=== PATIENT | male | born 1980 | race Caucasian/White ===

== ENCOUNTER 2025-01-04 10:35 | Emergency (ER) | payer OTHER, BC, SELFPAY ==
--- NOTE | ~2025-01-04 | XR_ITS ---
EXAMINATION: XR wrist RT min 3V, XR hand RT min 3V DATE: 01/04/2025 11:19 INDICATION: Right hand and wrist pain post fall TECHNIQUE: 1. Posteroanterior, ulnar deviation, oblique, and lateral views of the right wrist were obtained. 2. Dorsal palmar, oblique and lateral views of the right hand were obtained. COMPARISON: None. FINDINGS: Alignment of the hand and wrist is normal. No fracture identified. Joint spaces are normal. No foc al soft tissue swelling. IMPRESSION: 1. . Negative right hand and wrist radiographs. Reviewed, dictated and finalized at location A. IMPRESSION: 1. . Negative right hand and wrist radiographs.
--- OUTSIDE RECORDS SUMMARY | 2025-01-04 10:38 | XMS_ITS | Clinical Summary ---
Author Organization [facility] Address [address] [place] [address] Care Team Providers Care Package Center Supervisor Name Role Phone Gideon Akers MD Primary Care Provider Medications semaglutide (Ozempic) 2 mg/dose (8 mg/3 mL) Pen Injector Inject 2 mg by subcutaneous injection every 7 days. 4 Active lisinopriL (PRINIVIL) 20 mg tablet Take 10 mg by mouth daily. 2 Active empagliflozin-m etFORMIN (Synjardy) 12.5-1,000 mg tablet Take 1 Tablet by mouth 2 times daily. 2 Active atorvastatin (LIPITOR) 20 mg tablet Take 20 mg by mouth. 2 Active rOPINIRole (REQUIP) 0.5 mg tablet Take 0.5 mg by mouth. 3 Active Active Problems No known active problems Encounters Date Type Department Care Team Description 12/23/2024 External Device Data [facility] ABSTRACTION Provider, Abstract 11/26/2024 External Device Data [facility] ABSTRACTION Provider, Abstract 10/14/2024 External Device Data [facility]STRACTION Provider, Abstract from Last 3 Months Social History Tobacco Use Types Packs/Day Years Used Date Smoking Tobacco: Former Cigarettes Feeling Safe Answer Date Recorded Are you in a relationship wi th someone who hurts you emotionally and/or physically? 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 Gender Identity Not on file Sexual Orientation Not on file Last Filed Vital Signs Vital Sign Reading Time Taken Comments Blood Pressure 134/76 03/18/2024 9:00 AM CDT Pulse 62 03/18/2024 9:20 AM CDT Temperature 36.8 C (98.3 F) 03/18/2024 8:28 AM CDT Respiratory Rate 18 03/18/2024 8:28 AM CDT Oxygen Saturation 96% 03/18/2024 9:20 AM CDT Inhaled Oxygen Concentration - - Weight 140.6 kg (310 lb) 03/18/2024 8:28 AM CDT Height 195.6 cm (6' 5 ) 03/18/2024 8:28 AM CDT Body Mass Index 36.76 03/18/2024 8:28 AM CDT Plan of Treatment Health Maintenance Due Date Last Done Comments DIABETES ANNUAL FOOT EXAM 1999 DIABETES ANNUAL RETINAL EXAM 1999 DIABETES MICROALBUMIN ANNUAL SCREEN 1999 LDL CHOLESTEROL ANNUAL 1999 DTAP/TDAP/TD VACCINES (1 - Tdap) 01/23/2000 HEPATITIS B VACCINES (1 of 3 - 19+ 3-dose series) 01/23/2000 INFLUENZA VACCINE (#1) 2024 2, 05/27/2021, 05/26/2019 DIABETES HBA1C Q 6 MONTHS 08/04/2024 02/02/2024 HPV VACCINES Aged Out No longer eligi ble based on patient's age to complete this topic Insurance [employer] [id number] [employer] Care Teams Package Center Supervisor Relationship Specialty Start Date End Date Gideon Akers MD [address] [place] [address] PCP - General Family Practice 03/18/24
--- OUTSIDE RECORDS SUMMARY | 2025-01-04 10:38 | XMS_ITS | Clinical Summary ---
Author Organization [facility] Address [address] [place] [address] Care Team Providers Care Architect Name Role Phone Gideon Akers MD Primary Care Provider Allergies No known active allergies Medications ibuprofen 800 MG tablet Take 800 mg by mouth 3 (three) times daily. 8 Active promethazine 25 MG tabletIndications:N ausea and vomiting, intractability of vomiting not specified, unspecified vomiting type Take 1 tablet (25 mg total) by mouth every 6 (six) hours as needed for Nausea. 30 tablet 1 Active Blood Glucose Monitoring Suppl (ONE TOUCH ULTRA 2) w/Device KitIndications:Type 2 diabetes mellitus without complication, without long-term current use of insulin ([facility]) Use to check Fasting Blood Sugar Daily for DM E11.9 1 kit 1 Active Lancets MiscIndications:Typ e 2 diabetes mellitus without complication, without long-term current use of insulin ([facility]) Use to check Fasting Blood Sugar Daily for DM E11.9 100 each 3 1 Active OMEPRAZOLE 40 MG capsuleIndications: Heartburn TAKE 1 CAPSULE BY MOUTH EVERY DAY 30 capsule 11 1 Active ONETOUCH VERIO test stripIndications:Ty pe 2 diabetes mellitus without complication, without long-term current use of insulin ([facility]) USE TO CHECK FASTING BLOOD SUGAR DAILY FOR DIABETES 100 strip 3 1 Active varenicline (CHANTIX STARTING MONTH ) 0.5 MG X 11 & 1 MG X 42 tabletIndications:O ther tobacco product nicotine dependence, uncomplicated Take one 0.5 mg tablet by mouth once a day for 3 days, then increase to one 0.5 mg tablet twice a day for 4 days, then increase to one 1 mg tablet twice a day. 53 tablet 2 Active rOPINIRole (REQUIP) 0.5 MG tabletIndications:R estless leg syndrome Take 1 tablet (0.5 mg total) by mouth nightly at bedtime. 30 tablet 11 3 Active HYDROcodone-acetami nophen (NORCO) 5-325 MG tablet Take 43,467 tablets by mouth every 6 (six) hours as needed. 4 Active lisinopril (PRINIVIL) 20 MG tabletIndications:E ssential hypertension Take 1 tablet (20 mg total) by mouth daily. 90 tablet 3 4 Active atorvastatin (LIPITOR) 20 MG tabletIndications:P ure hypercholesterolemi a,Lipoprotein deficiency Take 1 tablet (20 mg total) by mouth nightly at bedtime. at bedtime 90 tablet 3 4 Active semaglutide (OZEMPIC) 2 mg/dose injection (PEN)Indications:Di abetes Mellitus Inject 2 mg into the skin once a week. Indications: Diabetes 9 mL 3 4 Active Empagliflozin-metFO RMIN HCl (SYNJARDY) 12.5-1000 MG TabIndications:Type 2 diabetes mellitus without complication, without long-term current use of insulin ([facility]) Take 1 tablet by mouth 2 (two) times daily. 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 Pure hypercholesterolemia 11/19/2020 Bilateral carpal tunnel syndrome 04/28/2019 Abrasion of left forearm 12/18/2017 Contusion of left forearm 12/18/2017 Left wrist sprain, initial encounter 12/18/2017 Nonintractable headache 12/18/2017 Scalp abrasion, initial encounter 12/18/2017 Sleep disturbances 06/01/2017 Class 2 severe obesity due t o excess calories with serious comorbidity and body mass index (BMI) of 36.0 to 36.9 in adult 01/05/2017 Nicotine dependence 01/05/2017 Restless leg syndrome 01/05/2017 Resolved Problems Problem Noted Date Diagnosed Date Resolved Date Impaired fasting glucose 10/29/2020 Immunizations Immunization Administration Dates Next Due Fluzone 6 Months+ Quad (0.5 mL Prefilled Syringe) 06/08/2022,05/27/2021,05/26/2019 Influenza Adult (Generic) 07/05/2017 Family History Medical History Relation Comments Hypertension Father Diabetes Mother Hypertension Mother None Sister Relation Status Comments Brother Alive Father Alive Mother Alive Sister Alive Social History Tobacco Use Types Packs/Day Years Used Date Smoking Tobacco: Every Day Cigarettes 2 20 Electronic Cigarettes Passive Smoke Exposure: Current Smokeless Tobacco: Current Tobacco Cessation:Ready to Q uit: No; Counseling Given: Yes Comments:physician will discuss smoking cessation- pt vapes Alcohol Use Standard Drinks/Week Comments Yes 0 (1 standard drink = 0.6 oz pur e alcohol) rarely PHQ-2 Answer Date Recorded Patient Health Questionnaire-2 Score 0 02/07/2024 Sex and Gender Information Value Date Recorded Sex Assigned at Not on file Legal Sex Male 8:20 PM CDT Gender Identity Not on file Sexual Orientation Not on file Last Filed Vital Signs Vital Sign Reading Time Taken Comments Blood Pressure 104/70 02/07/2024 7:24 AM CDT Pulse 66 02/07/2024 7:24 AM CDT Temperature 36.5 C (97.7 F) 02/07/2024 7:24 AM CDT Respiratory Rate 16 02/07/2024 7:24 AM CDT Oxygen Saturation 98% 02/07/2024 7:24 AM CDT Inhaled Oxygen Concentration - - Weight 139.3 kg (307 lb) 02/07/2024 7:24 AM CDT Height 195.6 cm (6' 5 ) 02/07/2024 7:24 AM CDT Body Mass Index 36.4 02/07/2024 7:24 AM CDT Plan of Treatment Health Maintenance Due Date Last Done Comments Diabetes: Retinopathy Eye Exam 1999 Hepatitis C 1999 DTaP, Tdap and Td Vaccines (1 - Tdap) 01/23/2000 Hepatitis B Vaccines (1 of 3 - 19+ 3-dose series) 01/23/2000 Pneumococcal Vaccine: Pediatrics (0 to 5 Years) and At-Risk Patients (6 to 49 Years) (1 of 2 - PCV) 01/23/2000 COVID-19 Vaccine (1 - season) 2024 Hemoglobin A1C 08/04/2024 02/02/2024, 04/0 09/2022, 06/08/2022, Additional history exists PHQ-2 (Physician [place]) 09/10/2024 02/07/2024 Kidney Health Evaluation 02/01/2025 02/02/2024 Lipid Panel 02/01/2025 02/02/2024, 040 09/2022, 12/10/2021, Additional history exists Annual Physical 02/06/2025 02/07/2024, 12/25/2022 HPV Vaccines Aged Out No longer eligi ble based on patient's age to complete this topic Meningococcal B Vaccine Aged Out No l onger eligible based on patient's age to complete this topic Meningococcal Vaccine Aged Out No leland luis alberto eligible based on patient's age to complete this topic RSV Immunizations Under 20 Months Aged Out No longer eligible based on patient's age to complete this topic Procedures Procedure Name Priority Date/Time Associated Diagnosis Comments LIPID PANEL Routine 02/02/2024 9:35 AM CDT HEMOGLOBIN, GLYCOSYLATED Routine 02/02/2024 9:35 AM CDT from Last 3 Months or Most Recently Relevant to Health Maintenance Results * HEMOGLOBIN, GLYCOSYLATED (02/02/2024 9:35 AM CDT) HGB A1C 5.0 <5.7 % of total [facility]gb [facility] Comment: For the purpose of screening for the presence of diabetes: <5.7% Consistent with the absence of diabetes 5.7-6.4% Consistent with increased risk for diabetes (prediabetes) > or =6.5% Consistent with diabetes This assay result is consistent with a decreased risk of diabetes. Currently, no consensus exists regarding use of hemoglobin A1c for diagnosis of diabetes in children. According to [place] Diabetes Association (ADA) guidelines, hemoglobin A1c <7.0% represents optimal control in non- diabetic patients. Different metrics may apply to specific patient populations. Standards of Medical Care in Diabetes(ADA). This test was performed on the Francie edgar c503 platform. Effective 11/26/23, a change in test platforms from the [employer] to the Francie edgar c503 may have shifted HbA1c results compared to historical results. Based on laboratory validation testing conducted at [facility], the Francie platform relative to the Gonzales platform had an average increase in HbA1c value of < or = 0.3%. This difference is within accepted variability established by the National Glycohemoglobin Standardization Program. Note that not all individuals will have had a shift in their results and direct comparisons between historical and current results for testing conducted on different platforms is not recommended. 02/02/2024 9:35 AM CDT 02/02/2024 9:36 AM CDT Narrative [facility] - 02/05/2024 11:46 AM CDT FASTING:YES FASTING: YES Resulting Agency Comment Performing Organization Information: Site ID: Name: [facility] Address: [address] [place] [id number] Director: Elliott Woods Gideon Akers MD LABORATORY Final R esult [facility]IME [facility] Help/Systems[address] [address] * LIPID PANEL (02/02/2024 9:35 AM CDT) [facility] Signature CHOLESTEROL 99 <200 mg/dL [facility] HDL 42 > OR = 40 mg/dL [facility] TRIGLYCERIDES 59 <150 mg/dL [facility] LDL (CALCULATED) 43 mg/dL (calc) [facility] Comment: Reference range: <100 Desirable range <100 mg/dL for primary prevention; <70 mg/dL for patients with CHD or diabetic patients with > or = 2 CHD risk factors. LDL-C is now calculated using the Anastasia calculation, which is a validated novel method providing better accuracy than the Friedewald equation in the estimation of LDL-C. Mauri MARRUFO et al. RAUL. 2013;310(19): 3086-4390 (http://education.[employer].com/faq/XES800) CHOL/HDL RATIO 2.4 <5.0 (calc) [facility] NON HDL CHOLESTEROL 57 <130 mg/dL (calc) [facility] Comment: For patients with diabetes plus 1 major ASCVD risk factor, treating to a non-HDL-C goal of <100 mg/dL (LDL-C of <70 mg/dL) is considered a therapeutic option. 02/02/2024 9:35 AM CDT 02/02/2024 9:36 AM CDT Narrative [facility] - [facility] - 02/05/2024 11:46 AM CDT FASTING:YES FASTING: YES Resulting Agency Comment Performing Organization Information: Site ID: [place] Name: [facility] Address: [address] [place] [address] Director: Elliott Woods MD us Gideon Akers MD LABORATORY Final R esult [facility] LINDSA[facility] [address] [place], [place] [address] from Last 3 Months or Most Recently Relevant to Health Maintenance Insurance [place] [address] [facility] Care Teams Architect Relationship Specialty Start Date End Date Gideon Akers MD [address] [place] [address] PCP - General 02/03/17
--- OUTSIDE RECORDS SUMMARY | 2025-01-04 10:38 | XMS_ITS | Clinical Summary ---
Author Organization [facility] Address [address] [place] [address] Care Team Providers Care Assistant Field Hockey Coach Name Role Phone Gideon Akers MD Primary Care Provider [phone]- [phone] Allergies No known active allergies Medications ibuprofen (ADVIL,MOTRIN) 800 mg tablet Take 1 tablet (800 mg total) by mouth 3 (three) times a day. 21 tablet 8 Active Additional Information Patient not taking.Reported on 05/28/2020 phentermine 37.5 mg capsule Take 37.5 mg by mouth every morning Active topiramate (TOPAMAX) 100 mg tablet Take 100 mg by mouth 2 (two) times a day Active gabapentin (NEURONTIN) 400 mg capsuleIndicati ons:taking 1-2 times a week Take 400 mg by mouth 3 (three) times a day Active arm brace (WRIST BRACE) miscIndications :Bilateral carpal tunnel syndrome bilateral wrist braces. Wear every night 1 each 9 Active Additional Information Patient not taking.Reported on 05/28/2020 Active Problems Problem Noted Date Diagnosed Date Bilateral carpal tunnel syndrome 04/28/2019 Left wrist sprain, initial encounter 12/18/2017 Contusion of left forearm 12/18/2017 Abrasion of left forearm 12/18/2017 Scalp abrasion, initial encounter 12/18/2017 Nonintractable headache 12/18/2017 Sleep disturbances 06/01/2017 Morbid obesity 01/05/2017 Nicotine dependence 01/05/2017 Restless leg syndrome 01/05/2017 Medical History Medical History Date Comments Numbness Family History Medical History Relation Name Comments Hypertension Father Diabetes Mother Relation Name Status Comments Father Mother Social History Tobacco Use Types Packs/Day Years Used Date Smoking Tobacco: Some Days Cigarettes Smokeless Tobacco: Never Alcohol Use Standard Drinks/Week Comments No 0 (1 standard drink = 0.6 oz pur e alcohol) Personal Safety Answer Date Recorded Getting School Help Needed Not on file 11/23 Sex and Gender Information Value Date Recorded Sex Assigned at Not on file 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 Gender Identity Not on file Sexual Orientation Not on file Obstetrics History Last Filed Vital Signs Vital Sign Reading Time Taken Comments Blood Pressure 136/86 05/28/2020 11:23 AM CDT Pulse 52 05/28/2020 11:23 AM CDT Temperature 36 C (96.8 F) 05/28/2020 11:23 AM CDT Respiratory Rate 20 12/18/2017 8:10 PM CDT Oxygen Saturation 96% 12/18/2017 8:10 PM CDT Inhaled Oxygen Concentration - - Weight 161.8 kg (356 lb 12.8 oz) 2019 11:23 AM CDT Height 195.6 cm (6' 5 ) 05/28/2020 11:2 3 AM CDT Body Mass Index 42.31 05/28/2020 11:23 AM CDT Plan of Treatment Not on file Insurance [facility] HMO/PPO Address: [facility] [address] [place] [address] CHO[employer] HMO/PPO Address: [facility] [address] [place] [address] Care Teams Assistant Field Hockey Coach Relationship Specialty Start Date End Date Gideon Akers MD [address] [facility] [address] [place] [address] PCP - General 12/18/17
--- OUTSIDE RECORDS SUMMARY | 2025-01-04 10:38 | XMS_ITS | Clinical Summary ---
Author Organization [facility] Address [address] [place] [address] Phone Care Team Providers Care Control Officer Name Role Phone Gideon Akers MD Primary Care Provider [phone]- [phone] Allergies No known active allergies Medications Synjardy 12.5-1000 MG Tablet 02/23/2022 Active atorvastatin (LIPITOR) 20 MG Tablet 02/23/2022 Active lisinopril (PRINIVIL, ZESTRIL) 20 MG Tablet 02/23/2022 Active Ozempic, 1 MG/DOSE, 4 MG/3ML Solution Pen-injector 02/23/2022 Active Active Problems Problem Noted Date Diagnosed Date Type 2 diabetes mellitus wit hout complication, without long-term current use of insulin 11/19/2020 Social History Tobacco Use Types Packs/Day Years Used Date Smoking Tobacco: Every Day Smokeless Tobacco: Never Sex and Gender Information Value Date Recorded Sex Assigned at Not on file Legal Sex Male 12:38 AM CDT Gender Identity Not on file Sexual Orientation Not on file Last Filed Vital Signs Vital Sign Reading Time Taken Comments Blood Pressure 138/80 03/04/2022 8:43 AM CDT Pulse 65 03/04/2022 8:43 AM CDT Temperature 36.7 C (98.1 F) 03/04/2022 8:43 AM CDT Respiratory Rate 18 03/04/2022 8:43 AM CDT Oxygen Saturation 96% 03/04/2022 8:43 AM CDT Inhaled Oxygen Concentration - - Weight 133.8 kg (295 lb) 03/04/2022 8:43 AM CDT Height - - Body Mass Index - - Plan of Treatment Health Maintenance Due Date Last Done Comments Diabetes: Eye Exam 1981 Diabetes: Foot Exam 1981 Hepatitis C Virus (HCV) Screening 1981 TdaP Immunization 1981 Diabetes: Nephropathy Screening 1999 Hepatitis B Immunization (1 of 3 - 19+ 3-dose series) 01/23/2000 Pneumococcal Immunization Combined (1 of 2 - PCV) 01/23/2000 Diabetes: Hemoglobin A1c 06/02/2022 11/30/2021 Influenza Immunization (#1) 05/11/202405/11, 05/26/2019, 07/05/2017, Additional history exists SARS-COV-2 Immunization ( - 2023- season) 2024 Respiratory Syncytial Virus (RSV) Immunization (Adult) (1 - 1-dose 75+ series) 01/23/2056 Meningococcal Immunization (ACWY) Aged Out No longer eligible based on patient's age to complete this topic Rotavirus Immunization Aged Out No lo nger eligible based on patient's age to complete this topic Insurance [facility] Care Teams Control Officer Relationship Specialty Start Date End Date Gideon Akers MD [address] [place] [address] PCP - General Family Medicine 03/04/22
--- OUTSIDE RECORDS SUMMARY | 2025-01-04 10:38 | XMS_ITS | Referral Summary ---
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
[2025-01-04 10:46] VITALS: BP 163/84; PULSE 85; RESP 16; TEMP 36.9; O2SAT 100
--- NOTE | 2025-01-04 11:46 | ED.GENADULT ---
HPI - General Adult General Chief complaint: Extremity Injury, Upper Stated complaint: Right Wrist Injury Source: patient Limitations: no limitations History of Present Illness HPI narrative: Pt presents for evaluation of right wrist pain. Symptom onset this morning. [place] He fell with his right upper extremity beneath him. He did not hit his head. No LOC. He is not on blood thinners. At rest he has minimal pain but with supination pronation his pain increases to 7/10 in severity. He has not taken any medication for his pain. He denies paresthesias. He is right-hand dominant. Related Data Home Medications ?Medication ?Instructions ?Recorded ?Confirmed ?Last Taken ?Type atorvastatin 20 mg tablet mg 01/04/25 Unknown History empagliflozin 12.5 mg-metformin tablet 01/04/25 Unknown History 1,000 mg tablet (Synjardy) lisinopril 20 mg tablet mg 01/04/25 Unknown History semaglutide 2 mg/dose (8 mg/3 mL) mg subcut 01/04/25 Unknown History subcutaneous pen injector (Ozempic) Allergies Allergy/AdvReac Type Severity Reaction Status Date / Time No Known Allergies Allergy Unverified 01/04/25 11:01 Review of Systems Review of Systems: CONSTITUTIONAL: Denies fever, chills, or sweats. EYES: Denies visual changes, redness, or discharge. ENT: Denies rhinorrhea, congestion, sore throat, or otalgia. CARDIOVASCULAR: Denies chest pain, palpitations, or edema. RESPIRATORY: Denies cough or dyspnea. GASTROINTESTINAL: Denies abdominal pain, nausea, vomiting, or diarrhea. GENITOURINARY: Denies dysuria or hematuria. SKIN: Denies rash or itching. MUSCULOSKELETAL: Reports right wrist pain. Denies other joint pain. NEUROLOGIC: Denies headache, numbness, dizziness, or weakness. PSYCHIATRIC: Denies anxiety or depression. [facility] Past Medical History Medical History Diabetes Hyperlipidemia Hypertension Surgical History Surgical History S/P cubital tunnel release Family History Family History Mother Family history non-contributory Social History Social History Alcohol intake: current Alcohol use details: rare Substance use: never Living arrangements: with family Gender identity (if verbalized by the patient): Male Sexual Orientation (if Verbalized by the Patient): Straight or Heterosexual Spiritual care concerns: No Exam Narrative: GENERAL: Well-appearing, well-nourished, and in no acute distress. HEAD: Normocephalic, atraumatic. EYES: PERRLA and EOMI. ENT: Nares clear, no rhinorrhea or epistaxis. Mucous membranes moist. Oropharynx without tonsillar hypertrophy exudate or other lesions. Bilateral TMs pearly knight nonbulging NECK: Supple. No adenopathy or masses. No carotid bruits or JVD CHEST: Clear to auscultation. No respiratory distress. No wheezes rales or rhonchi HEART: Regular rate and rhythm. No murmur heard. Normal peripheral pulses. ABDOMEN: Soft, nontender, nondistended, normal active bowel sounds. EXTREMITIES: Full range of motion of the right wrist. Pain is reproducible with supination and pronation of the right wrist. Is tenderness over the medial aspect of the right wrist. 5/5 hand vacuum spindle sander strength bilaterally. No crepitus or deformity. SKIN: Warm, dry, no rash. NEURO: No focal deficits. Alert and oriented x3. PSYCH: Normal mood and affect. Course Course Emergency Course: This is a 44-year-old male who presented for evaluation of right wrist pain. X-rays were obtained of the right wrist and hand were negative for fracture. I offered him an Jonas wrap. He declined. I recommended he purchase an [id number] Velcro wrist splint. Advised on RICE therapy. NSAIDs for pain. Follow up with primary provider to ensure no occult fracture. Go to the ER for worsening symptoms. Pt in agreement with plan of care. Level of Care: Express Care Visit Vital Signs Vital signs: Vital Signs Temperature 36.9 C 01/04/25 10:46 Pulse Rate 85 01/04/25 10:46 Respiratory Rate 16 01/04/25 10:46 Blood Pressure 163/84 H 01/04/25 10:46 Pulse Oximetry 100 01/04/25 10:46 Oxygen Delivery Room Air 01/04/25 10:46 Temperature 36.9 C 01/04/25 10:46 Pulse Rate 85 01/04/25 10:46 Respiratory Rate 16 01/04/25 10:46 Blood Pressure 163/84 H 01/04/25 10:46 Pulse Oximetry 100 01/04/25 10:46 Oxygen Delivery Room Air 01/04/25 10:46 Medical Decision Making Vital Signs Vital Signs: Vital Signs Temperature 36.9 C 01/04/25 10:46 Pulse Rate 85 01/04/25 10:46 Respiratory Rate 16 01/04/25 10:46 Blood Pressure 163/84 H 01/04/25 10:46 Pulse Oximetry 100 01/04/25 10:46 Oxygen Delivery Room Air 01/04/25 10:46 Temperature 36.9 C 01/04/25 10:46 Pulse Rate 85 01/04/25 10:46 Respiratory Rate 16 01/04/25 10:46 Blood Pressure 163/84 H 01/04/25 10:46 Pulse Oximetry 01/04/25 10:46 Oxygen Delivery Room Air 01/04/25 10:46 Imaging Data Radiologist's impression: EXAMINATION: XR wrist RT min 3V, XR hand RT min 3V DATE: 01/04/2025 11:19 INDICATION: Right hand and wrist pain post fall TECHNIQUE: 1. Posteroanterior, ulnar deviation, oblique, and lateral views of the right wrist were obtained. 2. Dorsal palmar, oblique and lateral views of the right hand were obtained. COMPARISON: None. FINDINGS: Alignment of the hand and wrist is normal. No fracture identified. Joint spaces are normal. No focal soft tissue swelling. IMPRESSION: 1. . Negative right hand and wrist radiographs. Discharge Plan Discharge Clinical Impression: Right wrist sprain Patient Disposition: Home Condition: Stable Instructions: Antibiotic Form, Wrist Sprain (ED) Patient Language: Malagasy Prescriptions: No Action atorvastatin 20 mg tablet lisinopril 20 mg tablet Synjardy 12.5-1,000 mg tablet Ozempic 2 mg/dose (8 mg/3 mL) pen injector SUBCUT Follow-up/Referrals: Evaristo Parmar MD [Physician] - Time of Disposition: 11:45
== END 2025-01-04 11:49 | disposition home or self-care (01) ==
PROVIDERS: Emergency Provider Nurse Practitioner
DX: S63.501A Unspecified sprain of right wrist, initial encounter (principal); W10.9XXA Fall (on) (from) unspecified stairs and steps, initial encounter; Y92.39 Other specified sports and athletic area as the place of occurrence of the external cause; E11.9 Type 2 diabetes mellitus without complications; I10 Essential (primary) hypertension; E78.5 Hyperlipidemia, unspecified
CPT/HCPCS: 73110; 73130; 99213; G0463